=== PATIENT | female | born 1975 | race African-American/Black ===

== ENCOUNTER 2018-05-19 05:10 | Day surgery (SDC) | payer OTHER ==
[2018-05-18 12:06] VITALS: BMI 22.1
--- NOTE | 2018-05-19 07:53 | HP ---
History & Physical Update - Physical Physical: No Change - Assessment Assessment: No Change - Plan Plan: No Change
[2018-05-19] MEDS ORDERED: DEXAMETHASONE SOD PHOSPHATE 4 MG/1 ML VIAL ONE (08:35)
[2018-05-19] MEDS ORDERED: MIDAZOLAM HCL 2 MG/2 ML SINGLE DOSE VIAL ONE (08:35)
[2018-05-19] MEDS ORDERED: ROCURONIUM BROMIDE 50 MG/5 ML VIAL ONE (09:29)
[2018-05-19] MEDS ORDERED: KETOROLAC TROMETHAMINE 30 MG/1 ML VIAL ONE (10:00)
[2018-05-19] MEDS ORDERED: ONDANSETRON 4 MG/2 ML VIAL IVPUSH PRN ×2 (10:21→10:46)
[2018-05-19] MEDS ORDERED: IBUPROFEN 600 MG TABLET (FP) PO PRN (10:21)
[2018-05-19] MEDS ORDERED: oxyCODONE HCL 5 MG TABLET PO PRN ×2 (10:21→10:46)
[2018-05-19] MEDS ORDERED: IBUPROFEN 800 MG/8 ML IJ IVPB PRN (10:21)
[2018-05-19] MEDS ORDERED: ELECTROLYTE-148 SOLN 1,000 ML IV SCH (10:30)
[2018-05-19] MEDS ORDERED: LACTATED RINGERS SOLUTION 1,000 ML IV SCH (11:00)
[2018-05-19 11:42] VITALS: TEMP 97.1
[2018-05-19 12:15] VITALS: BP 102/64; PULSE 66
--- NOTE | 2018-05-19 12:48 | OP ---
DATE OF OPERATION: 05/19/2018 PREOPERATIVE DIAGNOSIS: Menometrorrhagia, fibroid uterus, rule out submucous myoma. POSTOPERATIVE DIAGNOSIS: Menometrorrhagia, fibroid uterus, rule out submucous myoma, endometrial polyp. SURGEON: Leroy Poole MD ANESTHESIA: General. ANESTHESIOLOGIST: Abena Jarvis MD ESTIMATED BLOOD LOSS: 50 mL. DESCRIPTION OF PROCEDURE: After the patient was taken to the operating room had adequate general anesthesia in dorsal lithotomy position, examination under anesthesia revealed external genitalia to be normal. There was a cystocele. Cervix was grossly normal, no lesions. Uterus was enlarged, irregular, approximately 12 weeks size with a fundal fibroid. Adnexa, no masses were palpable. Then, with a weighted speculum in the vagina, anterior lip of the cervix was grasped with a single-tooth tenaculum. Cervix was dilated. Then, the Symphion resectoscope was introduced into the uterine cavity. Endometrium appeared to be irregular,. There were 2 polyps seen at the fundal area of the uterus. Both cornual region were identified. No submucous myoma was identified. Then, 2 polyps were removed, and then, endometrium was curetted. Patient tolerated the procedure well, left the OR in good condition. Giovanni [id number]
--- NOTE | 2018-05-20 16:27 | PATH ---
Surgical Pathology Report Patient Name: SHERINE BHATIA [facility]. Rec. #: [id number] /Age/Gender: 1975 (Age: 43) / F Account: [id number] Location: [facility] Taken: 05/19/2018 Received: 05/19/2018 Reported: 05/20/2018 Physicians: Leroy Poole M.D. Specimen(s) Received A: POLYP B: ENDOMETRIAL CURETTINGS Clinical History Hysteroscopy/D&C, resection of submucosal myoma Final Diagnosis A. POLYP, DILATION AND CURETTINGS: ENDOMETRIAL POLYP. SEPARATE SECRETORY TYPE ENDOMETRIUM. SMOOTH MUSCLE BUNDLES PRESENT. SEE COMMENT. B. ENDOMETRIAL CURETTINGS: ENDOMETRIAL POLYP. SEPARATE SECRETORY TYPE ENDOMETRIUM, UNREMARKABLE ENDOCERVICAL TISSUE AND SQUAMOUS EPITHELIUM. SMOOTH MUSCLE BUNDLES PRESENT. SEE COMMENT. 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 Electronically Signed Damon Sosa M.D. Gross Description A. Received in formalin labeled "polyp," are 5 lenz-pink portions of soft tissue ranging from 0.5 x 0.2 x 0.1 cm to 4.0 x 0.3 x 0.1 cm. The specimens are submitted in toto in one cassette. B. Received in formalin labeled "endometrial curettings," is a 4.0 x 4.0 x 0.4 cm aggregate of lenz red soft tissue fragments admixed with blood clot. The formalin is filtered and the specimen is entirely submitted in 3 cassettes. /05/19/2018 saudi05/19/2018
== END 2018-05-19 12:17 | disposition home or self-care (01) ==
LOC: JASU-SURG 05:10
PROVIDERS: ATTEND Obstetrics & Gynecology
PROC: 0UJD8ZZ Inspection of Uterus and Cervix, Via Natural or Artificial Opening Endoscopic (ICD-10-PCS; 2018-05-19)
PROC: 0UB97ZX Excision of Uterus, Via Natural or Artificial Opening, Diagnostic (ICD-10-PCS; principal; 2018-05-19 12:00)
PROC: 0UDB7ZX Extraction of Endometrium, Via Natural or Artificial Opening, Diagnostic (ICD-10-PCS; 2018-05-19 12:00)
DX: N92.1 Excessive and frequent menstruation with irregular cycle (principal); N84.0 Polyp of corpus uteri
CPT/HCPCS: 84703; 88305-TC; 94760